=== PATIENT | female | born 1960 | race Caucasian/White ===

== ENCOUNTER 2024-02-02 20:24 | Inpatient (IN) | payer MEDICARE, MEDICAID ==
[~2024-02-02] VITALS: Ht 154.9 cm; Wt 70.5 kg
[2024-02-02 23:05] LABS: BASOPHILS % 0.6 % (0.0-2.0); EOSINOPHILS % 2.2 % (0.0-5.0); HEMATOCRIT. 39.3 % (36.0-48.0); HEMOGLOBIN. 12.4 g/dL (12.0-16.0); LYMPHOCYTES % 16.5 % (20.0-50.0); MEAN CORPUSCULAR HGB CONC 31.6 g/dL (31.0-37.0); MEAN CORPUSCULAR VOLUME 91.8 fL (81.0-99.0); MEAN PLATELET VOLUME 9.8 fl (7.4-10.4); MONOCYTES % 4.7 % (2.0-8.0); PLATELET 159 x1000/uL (130-400); RED BLOOD CELL COUNT 4.28 mill/uL (4.2-5.4); RED CELL DISTRIBUTION WIDTH 18.4 % (11.6-14.6); WHITE BLOOD COUNT 6.6 x1000/uL (4.5-11.0)
[2024-02-02 23:18] LABS: PARTIAL THROMBOPLASTIN TIME 25.5 sec (23.4-31.0); PROTHROMBIN TIME 11.1 sec (9.6-11.0)
[2024-02-02 23:23] LABS: ALANINE AMINOTRANSFERASE 34 IU/L (10-49); ALBUMIN 4.2 g/dL (3.2-4.8); ASPARTATE AMINOTRANSFERASE 31 IU/L (<34); BILIRUBIN TOTAL 0.3 mg/dL (0.1-1.0); CARBON DIOXIDE 23 mEq/L (21-32); CHLORIDE 112 mEq/L (98-107); GLUCOSE 107 mg/dL (70-105); POTASSIUM 3.7 mEq/L (3.5-5.1); SODIUM 141 mEq/L (136-145); UREA NITROGEN BLOOD 15 mg/dL (9-23)
[2024-02-02 23:58] LABS: ETHANOL BLOOD < 10 mg/dL (<10); TROPONIN I HIGH SENSITIVITY 36 ng/L (3.0-34)
[2024-02-03 00:07] LABS: BG BASE EXCESS -1.8 mmol/L (-2.0-2.0); BG CARBOXYHEMOGLOBIN 0.3 % (0.5-1.5); BG DEOXYHEMOGLOBIN 7.6 % (0.0-5.0); BG FRACTION INSPIRED OXYGEN 21; BG HCO3 ACT 23.6 mmol/L (22.0-26.0); BG METHEMOGLOBIN 0.3 % (0.0-1.5); BG OXYGEN SATURATION 92.4 % (92.0-98.5); BG OXYHEMOGLOBIN 91.8 % (94.0-97.0); BG PCO2 42.7 mmHg (35.0-45.0); BG PH 7.361 (7.350-7.450); BG PO2 69.9 mmHg (75.0-100.0); BG SAMPLE SITE RIGHT RADIAL; BG TOTAL HEMOGLOBIN 12.7 g/dL (12.0-18.0); BG VENT MODE ROOM AIR
[2024-02-03 00:14] LABS: AMMONIA 36 uMol/L (<32)
[2024-02-03 00:18] LABS: TROPONIN I HIGH SENSITIVITY 40 ng/L (3.0-34)
[2024-02-03 00:33] LABS: T4 FREE 1.19 ng/dL (0.89-1.76); THYROID STIMULATING HORMONE 0.56 uIU/mL (0.55-4.78)
[2024-02-03] MEDS ORDERED: DOCUSATE SODIUM 100MG CAPSULE PO PRN ×2 (00:45→01:15)
[2024-02-03] MEDS ORDERED: CLONIDINE 0.1MG TABLET PO PRN ×2 (00:45→01:15)
[2024-02-03] MEDS ORDERED: ONDANSETRON HCL 4MG/2ML INJ IV PRN ×2 (00:45→01:15)
[2024-02-03] MEDS ORDERED: NA PHOS,M-B/NA PHOS,DI-BA ENEMA 118ML PR PRN ×2 (00:45→01:15)
[2024-02-03] MEDS ORDERED: IPRATROPIUM/ALBUTEROL 0.5-3(2.5)MG/3ML NEB HHN PRN ×2 (00:45→01:15)
[2024-02-03] MEDS ORDERED: ACETAMINOPHEN 325MG TABLET PO PRN ×4 (00:45→01:15)
[2024-02-03] MEDS ORDERED: MAGNESIUM/ALUMINUM HYDROXIDE/SIMETHICONE 30ML UDC PO PRN ×2 (00:45→01:15)
[2024-02-03] MEDS ORDERED: GUAIFENESIN 200MG/10ML SUGAR FREE UDC PO PRN ×2 (00:45→01:15)
[2024-02-03] MEDS ORDERED: DEXTROSE 50% WATER 50ML SYRINGE IV PRN (01:15)
[2024-02-03] MEDS ORDERED: ENOXAPARIN 40MG/0.4ML SYR SUBCUT SCH (01:15)
[2024-02-03 02:00] VITALS: BP 137/62; PULSE 66; RESP 18; TEMP 99.7
[2024-02-03 04:03] LABS: PHOSPHORUS 2.6 mg/dL (2.5-4.9)
[2024-02-03 06:49] LABS: CREATINE KINASE 60 IU/L (34-145); CREATINE KINASE MB FRACTION 0.6 ng/mL (0.5-3.6); PHOSPHORUS 2.8 mg/dL (2.5-4.9); TROPONIN I HIGH SENSITIVITY 20 ng/L (3.0-34)
[2024-02-03 08:00] VITALS: BP 148/76; PULSE 66; RESP 16; TEMP 97.5
[2024-02-03] MEDS: INSULIN LISPRO 100 UNITS/ML SUBCUT SCH (08:20)
[2024-02-03] MEDS: BLOOD SUGAR DIAGNOSTIC STRIP TEST SCH (09:00)
[2024-02-03 11:25] LABS: FERRITIN 9 ng/mL (10-291); FOLIC ACID (FOLATE) SERUM 5.45 ng/mL (>5.38); VITAMIN B12 SERUM 230 pg/mL (211-911)
[2024-02-03 11:36] LABS: IRON 44 ug/dL (50-170); TOTAL IRON BINDING CAPACITY 188 ug/dl (250-425)
[2024-02-03] MEDS: MAGNESIUM 4 G PREMIX 100 ML IV NR (11:46)
[2024-02-03] MEDS: ENOXAPARIN 40MG/0.4ML SYR SUBCUT SCH (11:46)
[2024-02-03] MEDS: PANTOPRAZOLE 40MG DR TABLET PO SCH (11:47)
[2024-02-03] MEDS: LEVOTHYROXINE SODIUM 88MCG TABLET PO SCH (11:56)
[2024-02-03 12:00] VITALS: BP 144/73; PULSE 63; RESP 18; TEMP 97.6
[2024-02-03 16:00] VITALS: BP 87/55; PULSE 71; RESP 15; TEMP 97.6
[2024-02-03 18:07] LABS: CREATINE KINASE 49 IU/L (34-145); CREATINE KINASE MB FRACTION < 0.5 ng/mL (0.5-3.6); TROPONIN I HIGH SENSITIVITY 6 ng/L (3.0-34)
[2024-02-03 20:00] VITALS: BP 124/64; PULSE 68; RESP 18; TEMP 97.4
[2024-02-03] MEDS: TOPIRAMATE 100MG TABLET PO SCH (21:11)
[2024-02-03] MEDS: ATORVASTATIN CALCIUM 40MG TABLET PO SCH (21:11)
[2024-02-04] VITALS: BP 147/77; PULSE 60; RESP 19; TEMP 97.5
[2024-02-04 04:00] VITALS: BP 129/73; PULSE 65; RESP 18; TEMP 98.2
[2024-02-04 06:56] LABS: BASOPHILS % 0.6 % (0.0-2.0); EOSINOPHILS % 3.2 % (0.0-5.0); HEMATOCRIT. 36.8 % (36.0-48.0); HEMOGLOBIN. 11.9 g/dL (12.0-16.0); LYMPHOCYTES % 29.6 % (20.0-50.0); MEAN CORPUSCULAR HEMOGLOBIN 29.2 pg (28.0-32.0); MEAN CORPUSCULAR HGB CONC 32.3 g/dL (31.0-37.0); MEAN CORPUSCULAR VOLUME 90.3 fL (81.0-99.0); MEAN PLATELET VOLUME 10.2 fl (7.4-10.4); MONOCYTES % 7.8 % (2.0-8.0); NEUTROPHILS % 58.8 % (40.0-76.0); PLATELET 177 x1000/uL (130-400); RED BLOOD CELL COUNT 4.08 mill/uL (4.2-5.4); WHITE BLOOD COUNT 5.3 x1000/uL (4.5-11.0)
[2024-02-04 07:47] LABS: ALANINE AMINOTRANSFERASE 30 IU/L (10-49); ASPARTATE AMINOTRANSFERASE 30 IU/L (<34); BILIRUBIN TOTAL 0.2 mg/dL (0.1-1.0); CALCIUM 8.5 mg/dL (8.7-10.4); CARBON DIOXIDE 23 mEq/L (21-32); CHLORIDE 113 mEq/L (98-107); CHOLESTEROL 114 mg/dL (<200); CREATININE 0.9 mg/dL (0.6-1.0); GLUCOSE 84 mg/dL (70-105); HDL CHOLESTEROL 33 mg/dL (>65); LDL CHOLESTEROL 69 mg/dL (5-100); POTASSIUM 3.6 mEq/L (3.5-5.1); PROTEIN TOTAL 6.4 g/dL (6.0-8.3); SODIUM 142 mEq/L (136-145); TRIGLYCERIDE 101 mg/dL (0-150); UREA NITROGEN BLOOD 15 mg/dL (9-23)
[2024-02-04 08:00] VITALS: BP 117/49; PULSE 67; RESP 20; TEMP 98.8
[2024-02-04 12:10] VITALS: BP 122/62; PULSE 71; RESP 18; TEMP 97.1
[2024-02-04 16:10] VITALS: BP 111/67; PULSE 73; RESP 18; TEMP 96.1
[2024-02-04 20:00] VITALS: BP 123/77; PULSE 71; RESP 19; TEMP 97.8
[2024-02-05] VITALS: BP 106/60; PULSE 69; RESP 19; TEMP 97.2
[2024-02-05 04:00] VITALS: BP 117/69; PULSE 63; RESP 19; TEMP 97
[2024-02-05 07:28] LABS: CALCIUM 8.5 mg/dL (8.7-10.4); CARBON DIOXIDE 21 mEq/L (21-32); CHLORIDE 111 mEq/L (98-107); CREATININE 0.9 mg/dL (0.6-1.0); GLUCOSE 76 mg/dL (70-105); POTASSIUM 4.1 mEq/L (3.5-5.1); SODIUM 143 mEq/L (136-145); UREA NITROGEN BLOOD 17 mg/dL (9-23)
[2024-02-05 07:31] LABS: BASOPHILS % 0.7 % (0.0-2.0); EOSINOPHILS % 3.1 % (0.0-5.0); HEMATOCRIT. 35.7 % (36.0-48.0); HEMOGLOBIN. 11.6 g/dL (12.0-16.0); LYMPHOCYTES % 31.1 % (20.0-50.0); MEAN CORPUSCULAR HEMOGLOBIN 29.4 pg (28.0-32.0); MEAN CORPUSCULAR HGB CONC 32.6 g/dL (31.0-37.0); MEAN CORPUSCULAR VOLUME 89.9 fL (81.0-99.0); MEAN PLATELET VOLUME 10.4 fl (7.4-10.4); MONOCYTES % 6.7 % (2.0-8.0); NEUTROPHILS % 58.4 % (40.0-76.0); PLATELET 170 x1000/uL (130-400); RED BLOOD CELL COUNT 3.97 mill/uL (4.2-5.4); WHITE BLOOD COUNT 5.6 x1000/uL (4.5-11.0)
[2024-02-05 08:00] VITALS: BP 142/77; PULSE 59; RESP 18; TEMP 97.6
[2024-02-05 12:00] VITALS: BP 124/68; PULSE 65; RESP 18; TEMP 97.8
[2024-02-05 16:00] VITALS: BP 132/71; PULSE 70; RESP 18; TEMP 97.7
[2024-02-05 20:00] VITALS: BP 128/72; PULSE 74; RESP 18; TEMP 97.2
[2024-02-06] VITALS: BP 136/75; PULSE 58; RESP 18; TEMP 97.2
[2024-02-06 04:00] VITALS: BP 143/78; PULSE 58; RESP 18; TEMP 97.5
[2024-02-06 07:13] LABS: BASOPHILS % 0.7 % (0.0-2.0); EOSINOPHILS % 4.1 % (0.0-5.0); HEMATOCRIT. 37.4 % (36.0-48.0); HEMOGLOBIN. 12.1 g/dL (12.0-16.0); MEAN CORPUSCULAR HEMOGLOBIN 29.4 pg (28.0-32.0); MEAN CORPUSCULAR HGB CONC 32.5 g/dL (31.0-37.0); MEAN CORPUSCULAR VOLUME 90.5 fL (81.0-99.0); MEAN PLATELET VOLUME 10.4 fl (7.4-10.4); MONOCYTES % 6.5 % (2.0-8.0); NEUTROPHILS % 58.7 % (40.0-76.0); PLATELET 170 x1000/uL (130-400); RED BLOOD CELL COUNT 4.13 mill/uL (4.2-5.4); WHITE BLOOD COUNT 4.8 x1000/uL (4.5-11.0)
[2024-02-06 07:25] LABS: CALCIUM 8.8 mg/dL (8.7-10.4); CARBON DIOXIDE 23 mEq/L (21-32); CHLORIDE 112 mEq/L (98-107); CREATININE 0.8 mg/dL (0.6-1.0); GLUCOSE 90 mg/dL (70-105); POTASSIUM 3.6 mEq/L (3.5-5.1); SODIUM 142 mEq/L (136-145); UREA NITROGEN BLOOD 13 mg/dL (9-23)
[2024-02-06 08:29] VITALS: BP 120/52; PULSE 57; RESP 18; TEMP 97.3
[2024-02-06 12:00] VITALS: BP 130/86; PULSE 63; RESP 18; TEMP 97.4
[2024-02-06 14:08] LABS: TOPIRAMATE 6.6 ug/mL (2.0-25.0)
[2024-02-06 14:54] VITALS: BP 130/86; PULSE 63; TEMP 97.4; O2SAT 100
== END 2024-02-06 16:00 | disposition home or self-care (01) | DRG 52 ==
LOC: ER 20:24 → 7EST 23:07 → EDBEDREQ 23:14
PROVIDERS: ADMIT Internal Medicine; ATTEND Internal Medicine
PROC: 4A10X4Z Monitoring of Central Nervous Electrical Activity, External Approach (ICD-10-PCS; principal; 2024-02-03)
DX: G92.8 Other toxic encephalopathy (principal); E11.22 Type 2 diabetes mellitus with diabetic chronic kidney disease; F25.9 Schizoaffective disorder, unspecified; R55 Syncope and collapse; I12.9 Hypertensive chronic kidney disease with stage 1 through stage 4 chronic kidney disease, or unspecified chronic kidney disease; G40.909 Epilepsy, unspecified, not intractable, without status epilepticus; N18.9 Chronic kidney disease, unspecified; F43.10 Post-traumatic stress disorder, unspecified; F31.9 Bipolar disorder, unspecified; E11.9 Type 2 diabetes mellitus without complications; Z79.84 Long term (current) use of oral hypoglycemic drugs; Z79.899 Other long term (current) drug therapy
CPT/HCPCS: 36415; 36600; 70551; 71045; 72141; 76700; 80048; 80053; 80061; 80201; 80320; 82140; 82375; 82550; 82553; 82607; 82728; 82746; 82805; 82962; 83036; 83540; 83550; 83605; 83735; 83880; 84100; 84145; 84439; 84443; 84484; 85025; 85379; 85651; 93005; 93306; 93880; 93970; 97116; 97162; 97166; 97530; 97535; 99285; J1650; J3475; G0480